=== PATIENT | male | born 1980 | race Hispanic/Latino ===

== ENCOUNTER 2024-04-29 09:22 | Emergency (ER) | payer SELFPAY ==
[2024-04-29] MEDS ORDERED: LIDOCAINE 1% 20 ML MDV ONE (09:36)
[2024-04-29] MEDS ORDERED: BUPIVACAINE 0.5% PF 10 ML VIAL ONE (09:36)
[2024-04-29] MEDS ORDERED: BUPIVACAINE 0.25% PF 10 ML VIAL ONE (09:36)
[2024-04-29] MEDS ORDERED: MORPHINE 4 MG/ML SYR ONE (09:37)
[2024-04-29] MEDS ORDERED: ONDANSETRON 4 MG/2 ML VIAL ONE (09:37)
[2024-04-29] MEDS ORDERED: CEFAZOLIN SODIUM 2 GM/VIAL ONE (09:38)
[2024-04-29] MEDS ORDERED: NA CHLORIDE 0.9% 50 ML ONE (09:39)
[2024-04-29 10:16] LABS: PT Prothrombin Time 11.7 SECONDS (9.4-12.5); Protime INR 1.05
[2024-04-29 10:20] LABS: Absolute Eosinophils 0.2 K/uL (0-0.5); Absolute Lymphocytes (CBC) 2.1 K/uL (0.7-4.9); Absolute Monocytes 0.6 K/uL (0.1-1.3); Basophils % 0.3 % (0-1.3); Eosinophils % 2.8 % (0-4.4); Hematocrit 48.2 % (39.6-49.0); Hemoglobin 16.4 g/dL (13.6-17.9); Lymphocytes % 35.7 % (15.3-44.8); MCH 31.9 pg (27.0-35.0); MCV 93.9 fL (80-100); MPV 8.2 fL (7.6-11.3); Monocytes % 10.9 % (3.3-12.3); Neutrophils % 50.3 % (41.7-73.7); Platelets 292 thou/uL (152-406); RBC Red Blood Cell Count 5.14 M/uL (4.33-5.43); Red Cell Distribution Width 13.9 % (12.1-15.2)
--- NOTE | 2024-04-29 10:20 | EDPHYS ---
Physician Documentation [facility] Name: Mich Armstrong Age: 43 yrs Sex: Male : 1980 Arrival Date: 04/29/2024 Time: 09:22 Bed 7 Private MD: ED Physician Eric Kaplan HPI: 04/29 10:09 This 43 yrs old Male presents to ER via Ambulatory with complaints of Finger adelina Injury. 10:09 Trauma demographics: County: The injury occurred in [place]. Mechanism of injury: left adelina index distal tip amp. Associated injuries: The patient sustained palmar aspect of distal phalanx of left index finger and left index fingernail, decreased range of motion, laceration, obvious fracture, painful injury. The patient has not experienced similar symptoms in the past. Historical: - Allergies: 09:30 No Known Allergies; rs5 - PMHx: :30 Hypercholesterolemia; rs5 - PSHx: :30 None; rs5 - Immunization history:: Adult Immunizations up to date. - Infectious Disease History:: Denies. - Social history:: Smoking status: Patient denies any tobacco usage or history of. ROS: 10:10 Constitutional: Negative for fever, chills, and weight loss, Eyes: Negative for injury, adelina pain, redness, and discharge, ENT: Negative for injury, pain, and discharge, Neck: Negative for injury, pain, and swelling, Cardiovascular: Negative for chest pain, palpitations, and edema, Respiratory: Negative for shortness of breath, cough, wheezing, and pleuritic chest pain, Abdomen/GI: Negative for abdominal pain, nausea, vomiting, diarrhea, and constipation, Back: Negative for injury and pain, : Negative for injury, bleeding, discharge, and swelling, Skin: Negative for injury, rash, and discoloration, Neuro: Negative for headache, weakness, numbness, tingling, and seizure, Psych: Negative for depression, anxiety, suicide ideation, homicidal ideation, and hallucinations, Allergy/Immunology: Negative for hives, rash, and allergies, Endocrine: Negative for neck swelling, polydipsia, polyuria, polyphagia, and marked weight changes, Hematologic/Lymphatic: Negative for swollen nodes, abnormal bleeding, and unusual bruising, 10:10 MS/extremity: Positive for injury or acute deformity, decreased range of motion, laceration, pain, swelling, tenderness, of the palmar aspect of distal phalanx of left index finger and left index fingernail, Exam: 10:11 Constitutional: This is a well developed, well nourished patient who is awake, alert, adelina and in no acute distress. Head/Face: Normocephalic, atraumatic. Eyes: Pupils equal round and reactive to light, extra-ocular motions intact. Lids and lashes normal. Conjunctiva and sclera are non-icteric and not injected. Cornea within normal limits. Periorbital areas with no swelling, redness, or edema. ENT: Nares patent. No nasal discharge, no septal abnormalities noted. Tympanic membranes are normal and external auditory canals are clear. Oropharynx with no redness, swelling, or masses, exudates, or evidence of obstruction, uvula midline. Mucous membranes moist. Neck: Trachea midline, no thyromegaly or masses palpated, and no cervical lymphadenopathy. Supple, full range of motion without nuchal rigidity, or vertebral point tenderness. No Meningismus. Chest/axilla: Normal chest wall appearance and motion. Nontender with no deformity. No lesions are appreciated. Cardiovascular: Regular rate and rhythm with a normal S1 and S2. No gallops, murmurs, or rubs. Normal PMI, no JVD. No pulse deficits. Respiratory: Lungs have equal breath sounds bilaterally, clear to auscultation and percussion. No rales, rhonchi or wheezes noted. No increased work of breathing, no retractions or nasal flaring. Abdomen/GI: Soft, non-tender, with normal bowel sounds. No distension or tympany. No guarding or rebound. No evidence of tenderness throughout. Back: No spinal tenderness. No costovertebral tenderness. Full range of motion. Male : Normal genitalia with no discharge or lesions. Skin: Warm, dry with normal turgor. Normal color with no rashes, no lesions, and no evidence of cellulitis. Neuro: Awake and alert, GCS 15, oriented to person, place, time, and situation. Cranial nerves II-XII grossly intact. Motor strength 5/5 in all extremities. Sensory grossly intact. Cerebellar exam normal. Normal gait. Psych: Awake, alert, with orientation to person, place and time. Behavior, mood, and affect are within normal limits. 10:11 Musculoskeletal/extremity: ROM: limited active range of motion due to pain, limited passive range of motion due to pain, Circulation is intact in all extremities. Compartment Syndrome exam of affected extremity: is normal. DVT Exam: negative Homans' sign noted on exam, no appreciated bluish discoloration, no erythema, no increased warmth, pain, swelling, tenderness, Vital Signs: 09:28 BP 148 / 98; Pulse 89; Resp 17; Temp 98(O); Pulse Ox 99% on R/A; rs5 10:00 BP 133 / 79; Pulse 77; Resp 16; Pulse Ox 99% ; rs5 10:20 BP 145 / 88; Pulse 70; Resp 17; Pulse Ox 99% on R/A; rs5 11:40 BP 137 / 81; Pulse 74; Resp 16; Pulse Ox 99% on R/A; rs5 Laceration: 10:12 Wound Repair of 2.5cm ( 1.0in ) subcutaneous laceration to left index fingernail. adelina distal tip amp. Distal neuro/vascular/tendon intact. Anesthesia: Local anesthetic administered with 1% lidocaine. Wound prep: Moderate cleansing with betadine by me. Skin closed with 1-0 none using bulky dress. Dressed with pressure dressing, non-adherent dressing. Patient tolerated well. MDM: 09:31 Patient medically screened. [facility] 10:20 Differential diagnosis: extremity fracture. Data reviewed: vital signs, nurses notes, [facility] lab test result(s), radiologic studies, plain films. Consideration of Admission/Observation Escalation of care including admission/observation considered. I considered the following discharge prescriptions or medication management in the emergency department Medications were administered in the Emergency Department. See MAR. Independent interpretation of the following test(s) in the Emergency Department X-Ray: My interpretation is left hand. Test considered but Not performed: CT: no ct. Historians other than the Patient: Spouse/Significant Other: . Care significantly affected by the following chronic conditions: high cholesterol. Counseling: I had a detailed discussion with the patient and/or guardian regarding the historical points, exam findings, and any diagnostic results supporting the discharge/admit diagnosis, lab results, radiology results, the need to transfer to another facility, for higher level of care, [facility] does not immediately have the required specialist. 04/29 09:52 Order name: CBC with Diff; Complete Time: 11:40 [facility] 04/29 09:52 Order name: Comprehensive Metabolic Panel; Complete Time: 11:40 [facility] 04/29 09:52 Order name: PT-INR; Complete Time: 11:40 [facility] 04/29 09:52 Order name: Hand Left 3 View XRAY; Complete Time: 11:40 [facility] 04/29 09:52 Order name: Dressing - Wound; Complete Time: 10:07 [facility] 04/29 09:52 Order name: Gloves, Sterile; Complete Time: 10:07 [facility] 04/29 09:52 Order name: Setup Suture Tray; Complete Time: 10:07 [facility] 04/29 09:52 Order name: NPO; Complete Time: 10:04 [facility] Administered Medications: 10:10 Drug: Boostrix Tdap IM 0.5 ml IM once; as a single dose Route: IM; Site: left deltoid; rs5 10:44 Follow up: Response: No adverse reaction rs5 10:10 Drug: ceFAZolin IVPB 2 grams IVPB once over 30 mins; (mix in 100 mL NS) Route: IVPB; rs5 Infused Over: 30 mins; Site: right antecubital; 10:40 Follow up: IV Status: Completed infusion; IV Intake: 100ml rs5 10:41 Follow up: Response: No adverse reaction rs5 10:10 Drug: morphine IVP or IV 2 mg IVP once over 4 mins Route: IVP; Infused Over: 4 mins; rs5 Site: right antecubital; 10:27 Follow up: Response: No adverse reaction; Pain is decreased rs5 10:10 Drug: morphine IVP or IV 2 mg IVP once over 4 mins Route: IVP; Infused Over: 4 mins; rs5 Site: right antecubital; 10:40 Follow up: Response: No adverse reaction; Pain is decreased rs5 10:10 Drug: Ondansetron IVP 4 mg IVP once; over 2 minutes Route: IVP; Site: right antecubital;rs5 10:30 Follow up: Response: No adverse reaction rs5 10:10 Drug: Bupivacaine Infiltration (0.5 %) 5 ml 10 ml Infiltration once {Note: adm by rs5 provider to affected digit.} Volume: 10 ml; Route: Infiltration; 10:33 Follow up: Response: No adverse reaction rs5 10:10 Drug: Lidocaine Infiltration (1 %) 5 ml 5 ml Infiltration once; to bedside {Note: adm rs5 by provider to affected digit.} Volume: 5 ml; Route: Infiltration; 10:33 Follow up: Response: No adverse reaction rs5 10:20 Not Given (Patient Refused): ativan0.5 mg IVP once rs5 10:21 Not Given (Patient Refused): ns 0.9% 1000 ml IV at 1 bolus Per protocol; 1000 mL bolus rs5 Disposition Summary: 04/29/24 10:20 Transfer Ordered Notes: Transfer Location: [facility] Reason: Higher level of care adelina Condition: Stable adelina Problem: new adelina Symptoms: have improved adelina Accepting Physician: to [facility](04/29/24 11:49) rs5 Diagnosis - 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 EDMS EDMS 09:52 09:52 COMPREHENSIVE METABOLIC PANEL+C.LAB.BRZ ordered. EDMS EDMS 09:52 09:52 PROTIME (+INR)+COAG.LAB.BRZ ordered. EDMS EDMS 11:49 10:20 to [facility] adelina rs5
--- NOTE | 2024-04-29 10:20 | ER ---
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 Coronavirus screen: At this time, the client does not indicate any symptoms associated with coronavirus-19. Ebola Screen: No symptoms or risks identified at this time. Initial Sepsis Screen: Does the patient meet any 2 criteria? No. Patient's initial sepsis screen is negative. Does the patient have a suspected source of infection? No. Patient's initial sepsis screen is negative. Risk Assessment: Do you want to hurt yourself or someone else? Patient reports no desire to harm self or others. Onset of symptoms was April 29, 2024. 09:28 Method Of Arrival: Ambulatory rs5 09:28 Acuity: [place] 3 rs5 Historical: - Allergies: 09:30 No Known Allergies; rs5 - PMHx: : Hypercholesterolemia; rs5 - PSHx: :30 None; rs5 - Immunization history:: Adult Immunizations up to date. - Infectious Disease History:: Denies. - Social history:: Smoking status: Patient denies any tobacco usage or history of. Screenin:30 [facility] ED Fall Risk Assessment (Adult) History of falling in the last 3 months, rs5 including since admission No falls in past 3 months (0 pts) Confusion or Disorientation No (0 pts) Intoxicated or Sedated No (0 pts) Impaired Gait No (0 pts) Mobility Assist Device Used No (0 pt) Altered Elimination No (0 pt) Score/Fall Risk Level 0 - 2 = Low Risk Oriented to surroundings, Maintained a safe environment. Abuse screen: Denies threats or abuse. Nutritional screening: No deficits noted. Tuberculosis screening: No symptoms or risk factors identified. Assessment: 09:30 General: Appears distressed, uncomfortable, Behavior is cooperative. Pain: Complains of rs5 pain in right index finger Pain currently is 7 out of 10 on a pain scale. Quality of pain is described as aching, Is continuous. Neuro: Level of Consciousness is awake, alert, obeys commands, Oriented to person, place, time, situation. Cardiovascular: Patient's skin is warm and dry. Respiratory: Airway is patent Respiratory effort is even, unlabored, Respiratory pattern is regular, symmetrical. GI: Abdomen is round non-distended, Abd is soft and non tender X 4 quads. : No signs and/or symptoms were reported regarding the genitourinary system. EENT: No signs and/or symptoms were reported regarding the EENT system. Derm: Skin is intact, Skin is pink, warm \\T\\ dry. smash injury to tip of right index finger, no active bleeding noted. Musculoskeletal: Range of motion: limited in right hand. 10:34 Reassessment: Patient and/or family updated on plan of care and expected duration. Pain rs5 level reassessed. Patient is alert, oriented x 3, equal unlabored respirations, skin warm/dry/pink. 11:40 Reassessment: No changes from previously documented assessment. rs5 Vital Signs: 09:28 BP 148 / 98; Pulse 89; Resp 17; Temp 98(O); Pulse Ox 99% on R/A; rs5 10:00 BP 133 / 79; Pulse 77; Resp 16; Pulse Ox 99% ; rs5 10:20 BP 145 / 88; Pulse 70; Resp 17; Pulse Ox 99% on R/A; rs5 11:40 BP 137 / 81; Pulse 74; Resp 16; Pulse Ox 99% on R/A; rs5 ED Course: 09:23 Arm band placed on Patient placed in an exam room, on a stretcher. ll1 09:24 Patient arrived in ED. bd 09:25 Eric Kaplan MD is Attending Physician. ll1 09:28 Duane Bajwa RN is Primary Nurse. rs5 09:30 Triage completed. rs5 09:30 Patient has correct armband on for positive identification. Bed in low position. Call rs5 light in reach. Side rails up X2. 09:30 No provider procedures requiring assistance completed. rs5 09:33 Inserted saline lock: 20 gauge in right antecubital area, using aseptic technique. rs5 Blood collected. Flushed with 10 mL NS. 10:29 initiated transfer to [place]. bd 10:40 pt accepted in transfer to [facility] by dr Guadalupe admin approval given by Monie Crowe, pt going to ER. 10:44 Hand Left 3 View XRAY In Process Unspecified. EDMS 11:04 Provided Education on: need for transfer. rs5 11:36 pt to be transported by [facility], [place] on 2 transfers. bd 11:45 Patient transferred, IV remains in place. rs5 Administered Medications: 10:10 Drug: Boostrix Tdap IM 0.5 ml IM once; as a single dose Route: IM; Site: left deltoid; rs5 10:44 Follow up: Response: No adverse reaction rs5 10:10 Drug: ceFAZolin IVPB 2 grams IVPB once over 30 mins; (mix in 100 mL NS) Route: IVPB; rs5 Infused Over: 30 mins; Site: right antecubital; 10:40 Follow up: IV Status: Completed infusion; IV Intake: 100ml rs5 10:41 Follow up: Response: No adverse reaction rs5 10:10 Drug: morphine IVP or IV 2 mg IVP once over 4 mins Route: IVP; Infused Over: 4 mins; rs5 Site: right antecubital; 10:27 Follow up: Response: No adverse reaction; Pain is decreased rs5 10:10 Drug: morphine IVP or IV 2 mg IVP once over 4 mins Route: IVP; Infused Over: 4 mins; rs5 Site: right antecubital; 10:40 Follow up: Response: No adverse reaction; Pain is decreased rs5 10:10 Drug: Ondansetron IVP 4 mg IVP once; over 2 minutes Route: IVP; Site: right antecubital;rs5 10:30 Follow up: Response: No adverse reaction rs5 10:10 Drug: Bupivacaine Infiltration (0.5 %) 5 ml 10 ml Infiltration once {Note: adm by rs5 provider to affected digit.} Volume: 10 ml; Route: Infiltration; 10:33 Follow up: Response: No adverse reaction rs5 10:10 Drug: Lidocaine Infiltration (1 %) 5 ml 5 ml Infiltration once; to bedside {Note: adm rs5 by provider to affected digit.} Volume: 5 ml; Route: Infiltration; 10:33 Follow up: Response: No adverse reaction rs5 10:20 Not Given (Patient Refused): ativan0.5 mg IVP once rs5 10:21 Not Given (Patient Refused): ns 0.9% 1000 ml IV at 1 bolus Per protocol; 1000 mL bolus rs5 Medication: 11:19 VIS not applicable for this client. rs5 Intake: 10:40 IV: 100ml; Total: 100ml. rs5 Outcome: 10:20 ER care complete, transfer ordered by MD. sahu 11:45 Transferred by ground EMS to [facility], Transfer form completed. X-rays sent rs5 w/ patient. 11:45 Condition: stable rs5 11:45 Instructed on the need for transfer, Demonstrated understanding of instructions, 11:49 Patient left the ED. rs5 Signatures: Dispatcher [employer] EDMS Krystina Ontiveros Corey, MD MD cha Lewis, Lynsay, RN RN ll1 Duane Bajwa RN RN rs5 Corrections: (The following items were deleted from the chart) 14:20 12:20 BP 137 / 81; Pulse 74bpm; Resp 16bpm; Pulse Ox 99% RA; rs5 rs5
[2024-04-29] MEDS ORDERED: TDAP (DIPHTH,PERTUSS(ACELL),TET VAC) 0.5 ML VIAL IMVAC ONE (10:27)
[2024-04-29 10:35] LABS: Albumin 3.6 g/dL (3.4-5.0); Albumin/Globulin Ratio 0.9 (1.1-1.8); Anion Gap 8.3 mEq/L (5.0-15.0); Bilirubin Total 0.8 mg/dL (0.2-1.0); Globulin 4.2 g/dL (2.3-3.5); Potassium 3.3 mEq/L (3.5-5.1); Protein, Total 7.8 g/dL (6.4-8.2)
--- NOTE | 2024-04-29 10:51 | RAD REPORT ---
Examination: Left hand, multiple views CLINICAL HISTORY: Injury and pain FINDINGS: Soft tissue and bony amputation of the distal aspect of the second finger is seen. Only the base of the distal phalanx of the second digit remains. Bandaging obscures bone detail. No gross foreign body.
[2024-04-29 11:53] VITALS: BP 148/98; TEMP 98; O2SAT 99
== END 2024-04-29 11:49 | disposition short-term general hospital (02) ==
LOC: ER 09:22
DX: S68.611A Complete traumatic transphalangeal amputation of left index finger, initial encounter (principal)
CPT/HCPCS: 12001; 36415; 80053; 85025; 85610; 96365; 96372; 96375; 99285; J2001; J2405